=== PATIENT | female | born 1970 | race Caucasian/White ===

== ENCOUNTER 2023-02-21 09:06 | Day surgery (SDC) | payer BC ==
[2023-02-15 13:44] VITALS: BMI 28.7
[2023-02-21 09:49] VITALS: RESP 18
[2023-02-21 10:59] VITALS: TEMP 97.7
[2023-02-21 12:09] VITALS: BP 101/65; PULSE 84
== END 2023-02-21 12:00 | disposition home or self-care (01) ==
LOC: FASU-ENDO 09:06
PROVIDERS: ATTEND Internal Medicine Gastroenterology
PROC: 0DBN8ZX Excision of Sigmoid Colon, Via Natural or Artificial Opening Endoscopic, Diagnostic (ICD-10-PCS; principal; 2023-02-21 10:39)
DX: Z12.11 Encounter for screening for malignant neoplasm of colon (principal); K63.5 Polyp of colon; K64.1 Second degree hemorrhoids
CPT/HCPCS: 81025; 88305-TC

== ENCOUNTER 2024-05-14 13:08 | Observation (INO) | payer BC ==
[2024-05-14 14:39] LABS: BASO % 0.6 % (0-2.0); EOS % 3.2 % (0-4.5); HEMATOCRIT 40.7 % (32.4-45.2); HEMOGLOBIN 13.6 GM/dL (10.7-15.3); LYMPH % 14.8 % (8-40); MCH 29.2 pg (25.7-33.7); MCHC 33.5 g/dl (32.0-36.0); MEAN CELL VOLUME 87.1 fl (80-96); MEAN PLT VOLUME 8.1 fl (7.5-11.1); MONO % 7.1 % (3.8-10.2); NEUT % 74.3 % (42.8-82.8); PLATELET COUNT 262 10^3/uL (134-434); RBC 4.67 M/mm3 (3.60-5.2); RDW 13.3 % (11.6-15.6); WHITE BLOOD COUNT 6.4 K/mm3 (4.0-10.0)
[2024-05-14 14:45] LABS: INR 0.92 (0.83-1.09); PROTHROMBIN TIME (PATIENT) 10.4 SEC (9.7-13.0)
[2024-05-14 14:48] LABS: ACTIVATED PTT 32.4 SECONDS (25.2-36.5)
[2024-05-14 15:02] LABS: POTASSIUM 4.8 mmol/L (3.5-5.1)
[2024-05-14 15:04] LABS: BLOOD UREA NITROGEN 15.6 mg/dL (7-18); CALCIUM 9.4 mg/dL (8.5-10.1)
[2024-05-14 15:05] LABS: ALBUMIN 3.6 g/dl (3.4-5.0)
[2024-05-14 15:08] LABS: CREATININE 0.8 mg/dL (0.55-1.3)
[2024-05-14 15:09] LABS: BILIRUBIN,TOTAL 0.5 mg/dL (0.2-1); TOT PROT 6.6 g/dl (6.4-8.2)
[2024-05-14] MEDS: SODIUM CHLORIDE 1,000 ML IV STA (19:57)
[2024-05-15] MEDS ORDERED: ALBUTEROL SO4 HFA INHALER IH PRN (00:35)
[2024-05-15] MEDS ORDERED: ACETAMINOPHEN 325 MG TABLET (FP) PO PRN (00:39)
[2024-05-15 01:26] VITALS: BMI 32.1
[2024-05-15 06:49] VITALS: RESP 18
[2024-05-15 07:21] LABS: BASO % 0.7 % (0-2.0); EOS % 4.4 % (0-4.5); HEMATOCRIT 39.5 % (32.4-45.2); HEMOGLOBIN 13.2 GM/dL (10.7-15.3); LYMPH % 31.1 % (8-40); MCH 29.5 pg (25.7-33.7); MCHC 33.5 g/dl (32.0-36.0); MEAN CELL VOLUME 88.3 fl (80-96); MONO % 10.3 % (3.8-10.2); NEUT % 53.5 % (42.8-82.8); PLATELET COUNT 237 10^3/uL (134-434); RBC 4.47 M/mm3 (3.60-5.2); RDW 12.9 % (11.6-15.6); WHITE BLOOD COUNT 4.8 K/mm3 (4.0-10.0)
[2024-05-15 08:21] LABS: BLOOD UREA NITROGEN 17.6 mg/dL (7-18); CALCIUM 9.6 mg/dL (8.5-10.1); CREATININE 0.8 mg/dL (0.55-1.3); POTASSIUM 4.4 mmol/L (3.5-5.1)
[2024-05-15] MEDS: BUDESONIDE/FORMOTEROL FUMARATE 160-4.5 MCG (10.3 GM INHALER) IH SCH (12:58)
[2024-05-15] MEDS: LIDOCAINE 5% TOPICAL PATCH TP SCH (12:59)
[2024-05-15 15:34] VITALS: BP 113/65; PULSE 74; TEMP 98.1
[2024-05-15] MEDS ORDERED: LIDOCAINE PATCH REMOVAL MC SCH (22:00)
== END 2024-05-15 18:02 | disposition home or self-care (01) ==
LOC: JER 13:08 → JERBED 21:16 → J4W 05-15 00:41
PROVIDERS: ADMIT Internal Medicine; ATTEND Internal Medicine
DX: R55 Syncope and collapse (principal); R94.31 Abnormal electrocardiogram [ECG] [EKG]; M54.9 Dorsalgia, unspecified; R61 Generalized hyperhidrosis; J45.909 Unspecified asthma, uncomplicated; M54.50 Low back pain, unspecified
CPT/HCPCS: 36415; 71275-TC; 80048; 80053; 84443; 84484; 85025; 85379; 85610; 85730; 93005; 93010; 93306-TC; 93970-TC; 99285-25; G0378; Q9967